=== PATIENT | female | born 2000 | race Caucasian/White ===

== ENCOUNTER 2019-01-08 14:36 | Emergency (ER) | payer MEDICAID ==
[~2019-01-08] VITALS: Ht 170.2 cm; Wt 53.6 kg
[2019-01-08] MEDS ORDERED: PHEN355L3 PEG (14:40)
[2019-01-08] MEDS ORDERED: ACETAMINOPHEN 500 MG TABLET PO ONE (16:00)
[2019-01-08] MEDS ORDERED: DEXAMETHASONE SOD PHOS 4 MG/ML 5 ML VIAL IM ONE (16:00)
[2019-01-08] MEDS ORDERED: IBUPROFEN 100 MG/5 ML SUSPENSION UDCUP PO ONE (16:45)
[2019-01-08 18:37] VITALS: BP 114/52
== END 2019-01-08 18:38 | disposition home or self-care (01) ==
LOC: EMS 14:38
DX: J02.9 Acute pharyngitis, unspecified (principal)
CPT/HCPCS: 87430; 96372; 99283; J1100